=== PATIENT | female | born 1995 | race Caucasian/White ===

== ENCOUNTER 2016-04-27 17:25 | Emergency (ER) | payer MEDICAID, OTHER ==
[2016-04-27] MEDS ORDERED: PANTOPRAZOLE 40MG INJ (PROTONIX) (C9113) As Ordered ONE (19:19)
[2016-04-27] MEDS ORDERED: ONDANSETRON 4MG/2ML VIAL (J2405) As Ordered ONE (19:19)
[2016-04-27 19:36] LABS: BASO % 0.3 % (0.0-1.0); EOS % 0.6 % (0.0-3.0); LARGE UNSTAINED CELL # 0.1 K/mm3 (0.0-0.4); LARGE UNSTAINED CELL % 1.8 % (0.0-4.0); LYMPH # 1.5 K/mm3 (1.5-6.5); LYMPH % 26.3 % (24.0-44.0); MEAN CORPUSCULAR HEMOGLOBIN 31.2 pg (27.0-33.0); MEAN CORPUSCULAR HGB CONC 34.1 g/dl (32.0-36.5); MEAN CORPUSCULAR VOLUME 91.4 fl (80.0-96.0); MONO # 0.3 K/mm3 (0.0-0.8); MONO % 4.8 % (0.0-5.0); NEUTROPHILS # 3.8 K/mm3 (1.8-7.7); NEUTROPHILS % 66.2 % (36.0-66.0); PLATELET COUNT, AUTOMATED 231 k/mm3 (150-450); RED CELL DISTRIBUTION WIDTH 12.7 % (11.5-14.5); WHITE BLOOD COUNT 5.8 K/mm3 (4.0-10.0)
[2016-04-27 19:46] LABS: ALBUMIN 4.1 GM/DL (3.2-5.2); ALBUMIN/GLOBULIN RATIO 1.28 (1.00-1.93); ALKALINE PHOSPHATASE 33 U/L (45-117); ALT/SGPT 26 U/L (12-78); AMYLASE 42 U/L (25-115); ANION GAP 6 MEQ/L (8-16); AST/SGOT 17 U/L (15-37); BILIRUBIN,DIRECT < 0.1 MG/DL (0.0-0.2); BILIRUBIN,TOTAL 0.4 MG/DL (0.2-1.0); BLOOD UREA NITROGEN 7 MG/DL (7-18); CALCIUM LEVEL 8.9 MG/DL (8.5-10.1); CARBON DIOXIDE LEVEL 30 MEQ/L (21-32); CHLORIDE LEVEL 105 MEQ/L (98-107); CREATININE FOR GFR 0.92 MG/DL (0.55-1.02); GLOMERULAR FILTRATION RATE > 60.0 (>60); GLUCOSE, FASTING 104 MG/DL (70-105); POTASSIUM SERUM 3.9 MEQ/L (3.5-5.1); SODIUM LEVEL 141 MEQ/L (136-145); TOTAL PROTEIN 7.3 GM/DL (6.4-8.2)
[2016-04-27 20:13] LABS: CONTROL LINE UCG INT CTR LINE PRESENT
--- NOTE | 2016-04-27 22:10 | EDDOCDS ---
Nurse's Notes [facility] Name: Concha Hogue Age: 20 yrs Sex: Female : 1995 Arrival Date: 04/27/2016 Time: 17:25 Bed I7 / 29 Private MD: Kathy Muller Diagnosis: Upper abdominal pain, unspecified;Vomiting Presentation: 04/27 17:30 Presenting complaint: Patient states: throwing up for past 2 days. Patient also reports hs1 sharp pain on left upper quadrant. Patient states just continuing to get weaker. Adult Sepsis Screening: The patient does not have new or worsening altered mentation. Patient's respiratory rate is less than 22. Systolic blood pressure is greater than 100. Patient has a qSOFA score of 0- Negative Sepsis Screen. Suicide/Homicide risk assessment- the patient denies having any suicidal and/or homicidal ideations and does not present with any other emotional, behavioral or mental health complaints. Status: Patient is not a manager of allied health services or dependent. Transition of care: patient was not received from another setting of care. 17:30 Acuity: ELIAZAR Level 3 hs1 17:30 Method Of Arrival: Walkin/Carried/Asstd hs1 Triage Assessment: 17:31 General: Appears uncomfortable, Behavior is appropriate for age, cooperative. Pain: hs1 Location: right upper quadrant and left upper quadrant Pain currently is 8 out of 10 on a pain scale. Pain: Quality of pain is described as sharp. HIV screening NA for this visit Offered previously. GI: Reports nausea. GI: Reports indigestion. : Denies burning with urination. Derm: Skin is pink, warm & dry. normal. Historical: - Allergies: No known drug Allergies; - Home Meds: 1. none - PMHx: none; - PSHx: Tonsillectomy; Adenoidectomy; - Social history: Smoking status: Patient states was never smoker of tobacco. No barriers to communication noted, The patient speaks fluent Lebanese, Speaks appropriately for age. - Family history: Not pertinent. - : The pt / caregiver states he / she is not on anticoagulants. Home medication list is obtained from the patient. - Exposure Risk Screening:: None identified. Screenin:25 Screening information is obtained from the patient. Fall risk: No risks identified. jmb Assistance ADL's: requires no assistance with activities of daily living. Abuse/DV Screen: The patient / caregiver reports he/she is: not in a situation that causes fear, pain or injury. Nutritional screening: No deficits noted. home support is adequate. 22:09 Advance Directives: There is no active DNR order. mb9 Assessment: 19:25 General: Appears in no apparent distress, Behavior is appropriate for age, cooperative. jmb Neurological: Level of Consciousness is awake, alert, obeys commands, Oriented to person, place, time, Speech is normal, Facial symmetry appears normal, Facial symmetry: tongue is midline. Cardiovascular: Capillary refill < 3 seconds Heart tones S1 S2 present Pulses are all present. Respiratory: Airway is patent Respiratory effort is even, unlabored, Respiratory pattern is regular, symmetrical, Breath sounds are clear bilaterally. GI: Abdomen is non- distended Bowel sounds present X 4 quads. Abd is soft X 4 quads. Derm: Skin is pink, warm & dry. Musculoskeletal: Range of motion intact in all extremities. 20:23 General: Appears in no apparent distress, comfortable, Behavior is appropriate for age, jmb cooperative, Patient laying on stretcher with friend at bedside. NO voiced complaints at this time. . Neurological: Level of Consciousness is awake, alert, obeys commands, Oriented to person, place, time. Respiratory: Airway is patent Respiratory effort is even, unlabored, Respiratory pattern is regular, symmetrical. 21:04 General: Appears in no apparent distress, comfortable, Behavior is appropriate for age, jmb cooperative. Neurological: Level of Consciousness is awake, alert, obeys commands, Oriented to person, place, time. Respiratory: Airway is patent Respiratory effort is even, unlabored, Respiratory pattern is regular, symmetrical. 21:57 General: Appears in no apparent distress, comfortable, Behavior is appropriate for age, mb9 cooperative. Respiratory: Airway is patent Respiratory effort is even, unlabored. GI: Denies nausea. 22:09 General: Appears. mb9 Vital Signs: 17:28 BP 165 / 87; Pulse 89; Resp 18 S; Temp 97.3(O); Pulse Ox 100% on R/A; Weight 92.53 kg gr2 (R); Height 5 ft. 11 in. (180.34 cm) (R); Pain 4/10; 22:09 BP 132 / 91; Pulse 77; Resp 17; Temp 97.5(TE); Pulse Ox 99% ; mb9 17:28 Body Mass Index 28.45 (92.53 kg, 180.34 cm) gr2 Vitals: 17:28 Log In Time: April 27, 2016 at 17:28. gr2 ED Course: 17:27 Patient visited by Keren Aaron. gr2 17:27 Kathy Muller is Private Physician. gr2 17:27 Patient moved to Waiting gr2 17:28 Patient visited by Keren Aaron. gr2 17:28 Patient moved to Pre RCE gr2 17:30 Triage Initiated hs1 18:48 Patient moved to Triage 2 ck1 19:03 Fidencio Faulkner RPA-C is PHCP. ck7 19:03 Ezra San MD is Attending Physician. ck7 19:03 Patient visited by Fidencio Faulkner RPA-C. ck7 19:07 Blanca Martinez, BK is Primary Nurse. ttb 19:07 Maya Craven,BK is Primary Nurse. ttb 19:07 Patient moved to I ttb 19:25 The patient / caregiver is instructed regarding the plan of care and ED course. jmb 19:25 Amylase Sent. jmb 19:25 Basic Metabolic Profile Sent. jmb 19:25 CBC with Diff Sent. jmb 19:25 Lipase Sent. jmb 19:25 Liver Profile Sent. jmb 19:25 Urinalysis Sent. jmb 19:25 Urine Culture Sent. jmb 19:25 Inserted saline lock: 18 gauge in right antecubital area and blood collected. The [facility] patient tolerated the procedure well. Labs drawn. (by ED staff). Sent per order to lab. Urine collected. Clean catch specimen. 19:27 Patient visited by Lobo Castillo,BK. jmb 19:47 [facility] Payment Agreement was scanned into [employer] and attached to record. gjb 20:00 Patient visited by Fidencio Faulkner RPA-C. ck7 20:00 UCG- In Lab Sent. kc3 20:23 Patient visited by Lobo Castillo,BK. jmb 21:05 Patient visited by Lobo Castillo,BK. jmb 21:29 Primary Nurse role handed off by Blanca Martinez, RN pc 21:35 Patient visited by Fidencio Faulkner RPA-C. ck7 21:55 Kathy Muller is Referral Physician. ck7 22:09 Discontinued IV lock intact, bleeding controlled, pressure dressing applied, No mb9 redness/swelling at site. No procedures done that require assistance. Administered Medications: 19:31 Drug: pantoprazole 40 mg [pantoprazole 40 mg intravenous solution] Route: IV; Rate: kc3 bolus; Site: right antecubital; 19:31 Drug: Ondansetron 4 mg [ondansetron HCl 2 mg/mL intravenous solution (2 mL)] Route: kc3 IVP; Site: right antecubital; 19:32 Drug: NS 0.9% 1000 ml [sodium chloride 0.9 % intravenous solution] Route: IV; Rate: kc3 bolus; Site: right antecubital; Intake: 21:58 PO: 360.00ml; Total: 360.00ml. mb9 Order Results: Lab Order: Amylase; SPEC'M 04/27/16 19:21 Test: AMYLASE; Value: 42; Range: 25-115; Units: U/L; Status: F Lab Order: Basic Metabolic Profile; SPEC'M 04/27/16 19:21 Test: GLUCOSE, FASTING; Value: 104; Range: 70-105; Units: MG/DL; Status: F Test: BLOOD UREA NITROGEN; Value: 7; Range: 7-18; Units: MG/DL; Status: F Test: CREATININE FOR GFR; Value: 0.92; Range: 0.55-1.02; Units: MG/DL; Status: F Test: GLOMERULAR FILTRATION RATE; Value: > 60.0; Range: >60; Status: F Test: SODIUM LEVEL; Value: 141; Range: 136-145; Units: MEQ/L; Status: F Test: POTASSIUM SERUM; Value: 3.9; Range: 3.5-5.1; Units: MEQ/L; Status: F Test: CHLORIDE LEVEL; Value: 105; Range: 98-107; Units: MEQ/L; Status: F Test: CARBON DIOXIDE LEVEL; Value: 30; Range: 21-32; Units: MEQ/L; Status: F Test: ANION GAP; Value: 6; Range: 8-16; Abnormal: Below low normal; Units: MEQ/L; Status: F Test: CALCIUM LEVEL; Value: 8.9; Range: 8.5-10.1; Units: MG/DL; Status: F Test Note: ; Units are mL/min/1.73 m2 Chronic Kidney Disease Staging per NKF: Stage I & II GFR >=60 Normal to Mildly Decreased Stage III GFR 30-59 Moderately Decreased Stage IV GFR 15-29 Severely Decreased Stage V GFR <15 Very Little GFR Left ESRD GFR <15 on CUSTOMER EXPERT Lab Order: CBC with Diff; SPEC'M 04/27/16 19:21 Test: WHITE BLOOD COUNT; Value: 5.8; Range: 4.0-10.0; Units: K/mm3; Status: F Test: RED BLOOD COUNT; Value: 4.15; Range: 4.00-5.40; Units: M/mm3; Status: F Test: HEMOGLOBIN; Value: 13.0; Range: 12.0-16.0; Units: g/dl; Status: F Test: HEMATOCRIT; Value: 38.0; Range: 36.0-47.0; Units: %; Status: F Test: MEAN CORPUSCULAR VOLUME; Value: 91.4; Range: 80.0-96.0; Units: fl; Status: F Test: MEAN CORPUSCULAR HEMOGLOBIN; Value: 31.2; Range: 27.0-33.0; Units: pg; Status: F Test: MEAN CORPUSCULAR HGB CONC; Value: 34.1; Range: 32.0-36.5; Units: g/dl; Status: F Test: RED CELL DISTRIBUTION WIDTH; Value: 12.7; Range: 11.5-14.5; Units: %; Status: F Test: PLATELET COUNT, AUTOMATED; Value: 231; Range: 150-450; Units: k/mm3; Status: F Test: NEUTROPHILS %; Value: 66.2; Range: 36.0-66.0; Abnormal: Above high normal; Units: %; Status: F Test: LYMPH %; Value: 26.3; Range: 24.0-44.0; Units: %; Status: F Test: MONO %; Value: 4.8; Range: 0.0-5.0; Units: %; Status: F Test: EOS %; Value: 0.6; Range: 0.0-3.0; Units: %; Status: F Test: BASO %; Value: 0.3; Range: 0.0-1.0; Units: %; Status: F Test: LARGE UNSTAINED CELL %; Value: 1.8; Range: 0.0-4.0; Units: %; Status: F Test: NEUTROPHILS #; Value: 3.8; Range: 1.8-7.7; Units: K/mm3; Status: F Test: LYMPH #; Value: 1.5; Range: 1.5-6.5; Units: K/mm3; Status: F Test: MONO #; Value: 0.3; Range: 0.0-0.8; Units: K/mm3; Status: F Test: EOS #; Value: 0.0; Range: 0.0-0.50; Units: K/mm3; Status: F Test: BASO #; Value: 0.0; Range: 0.0-0.2; Units: K/mm3; Status: F Test: LARGE UNSTAINED CELL #; Value: 0.1; Range: 0.0-0.4; Units: K/mm3; Status: F Lab Order: Lipase; SPEC' 04/27/16 19:21 Test: LIPASE; Value: 138; Range: 73-393; Units: U/L; Status: F Lab Order: Liver Profile; SPEC' 04/27/16 19:21 Test: AST/SGOT; Value: 17; Range: 15-37; Units: U/L; Status: F Test: ALT/SGPT; Value: 26; Range: 12-78; Units: U/L; Status: F Test: ALKALINE PHOSPHATASE; Value: 33; Range: 45-117; Abnormal: Below low normal; Units: U/L; Status: F Test: BILIRUBIN,TOTAL; Value: 0.4; Range: 0.2-1.0; Units: MG/DL; Status: F Test: BILIRUBIN,DIRECT; Value: < 0.1; Range: 0.0-0.2; Units: MG/DL; Status: F Test: TOTAL PROTEIN; Value: 7.3; Range: 6.4-8.2; Units: GM/DL; Status: F Test: ALBUMIN; Value: 4.1; Range: 3.2-5.2; Units: GM/DL; Status: F Test: ALBUMIN/GLOBULIN RATIO; Value: 1.28; Range: 1.00-1.93; Status: F Lab Order: Urinalysis; SPEC'M 04/27/16 19:21 Test: APPEARANCE, URINE; Value: CLEAR; Range: CLEAR; Status: F Test: COLOR, URINE; Value: YELLOW; Range: YELLOW; Status: F Test: PH,URINE; Value: 9.0; Range: 5.0-9.0; Units: UNITS; Status: F Test: SPECIFIC GRAVITY URINE AUTO; Value: 1.010; Range: 1.002-1.035; Status: F Test: PROTEIN, URINE AUTO; Value: NEGATIVE; Range: NEGATIVE; Units: mg/dL; Status: F Test: GLUCOSE, URINE (UA) AUTO; Value: NEGATIVE; Range: NEGATIVE; Units: mg/dL; Status: F Test: KETONE, URINE AUTO; Value: NEGATIVE; Range: NEGATIVE; Units: mg/dL; Status: F Test: UROBILINOGEN, URINE AUTO; Value: 0.2; Range: 0.0-2.0; Units: mg/dL; Status: F Test: BILIRUBIN, URINE AUTO; Value: NEGATIVE; Range: NEGATIVE; Status: F Test: NITRITE, URINE AUTO; Value: NEGATIVE; Range: NEGATIVE; Status: F Test: LEUKOCYTE ESTERASE, URINE AUTO; Value: NEGATIVE; Range: NEGATIVE; Status: F Test: BLOOD, URINE BLOOD; Value: NEGATIVE; Range: NEGATIVE; Status: F Test: WBC, URINE AUTO; Value: 1; Range: 0-3; Units: /HPF; Status: F Test: RBC, URINE AUTO; Value: 2; Range: 0-3; Units: /HPF; Status: F Test: BACTERIA, URINE AUTO; Value: NEGATIVE; Range: NEGATIVE; Status: F Test: SQUAMOUS EPITHELIAL CELL UR AU; Value: 0; Range: 0-6; Units: /HPF; Status: F Test: HYALINE CAST, URINE AUTO; Value: 0; Range: 0-1; Units: /LPF; Status: F Test: AMORPHOUS SEDIMENT; Value: SMALL; Range: NEGATIVE; Abnormal: Above high normal; Status: F Lab Order: UCG- In Lab; SPEC'M 04/27/16 19:30 Test: URINE PREG TEST; Value: NEGATIVE; Range: NEGATIVE; Status: F Outcome: 21:56 Discharge ordered by Provider. ck7 22:09 Discharge Assessment: patient administered narcotics - no. The following High Risk mb9 Discharge criteria are identified: None. Discharged to home ambulatory. Condition: good Condition: stable Condition: improved. Discharge instructions given to patient, Instructed on discharge instructions, follow up and referral plans. medication usage, Demonstrated understanding of instructions, medications, Pt was receptive of discharge instructions/ teaching. Prescriptions given X 2. No special radiology studies were completed. Property :Personal belongings accompany Pt. 22:10 Patient left the ED. mb9 Signatures: Sunday Gunn MD MD pc Kim-Ashcraft, Connie,RN RN ck1 Jessica Menchaca RN RN hs1 Fidencio Faulkner, [facility] RPA-Cck7 Kassy Springer, RN RN ttb Keren Aaron gr2 Lobo Castillo RN RN Kishore GaribayRN RN mb9 Germania Elias RN RN kc3 Yani Rowe ROSS
--- NOTE | 2016-04-27 22:10 | EDDOCDS ---
Physician Documentation [facility] Name: Concha Hogue Age: 20 yrs Sex: Female : 1995 Arrival Date: 04/27/2016 Time: 17:25 Bed I7 / 29 Private MD: Kathy Muller Disposition: 04/27/16 21:56 Discharged to Home/Self Care. Impression: Upper abdominal pain, unspecified, Vomiting. - Condition is Stable. - Discharge Instructions: Abdominal Pain, Adult, Nausea and Vomiting. - Prescriptions for Prilosec 20 mg Oral Capsule - take 1 capsule by ORAL route once daily; 10 capsule. ZOFRAN ODT 4 mg - dissolve 1 tablet by ORAL route 4 times per day As needed do not chew, do not swallow whole; 10 tablet. - Medication Reconciliation, Local Pharmacy Hours form. - Follow up: Kathy Muller; When: 1 - 2 days; Reason: Recheck today's complaints, Continuance of care. - Problem is new. - Symptoms have improved. - Notes: USE MEDICATIONS INSTRUCTED, FOLLOW UP WITH YOUR DOCTOR IN 1-2 DAYS, RETURN TO THE ER IF THE SYMPTOMS WORSEN OR BECOME CONCERNING Historical: - Allergies: No known drug Allergies; - Home Meds: 1. none - PMHx: none; - PSHx: Tonsillectomy; Adenoidectomy; - Social history: Smoking status: Patient states was never smoker of tobacco. No barriers to communication noted, The patient speaks fluent Italian, Speaks appropriately for age. - Family history: Not pertinent. - : The pt / caregiver states he / she is not on anticoagulants. Home medication list is obtained from the patient. - Exposure Risk Screening:: None identified. Vital Signs: 04/27 17:28 BP 165 / 87; Pulse 89; Resp 18 S; Temp 97.3(O); Pulse Ox 100% on R/A; Weight 92.53 kg / gr2 203.99 lbs (R); Height 5 ft. 11 in. (180.34 cm) (R); Pain 4/10; 22:09 BP 132 / 91; Pulse 77; Resp 17; Temp 97.5(TE); Pulse Ox 99% ; mb9 17:28 Body Mass Index 28.45 (92.53 kg, 180.34 cm) gr2 MDM: 19:12 Undress patient appropriately for examination ordered. ck7 19:12 IV Saline Lock ordered. ck7 19:12 NS 0.9% 1000 ml IV at bolus once ordered. ck7 19:12 pantoprazole 40 mg IV at bolus once ordered. ck7 19:12 Ondansetron 4 mg IVP once ordered. ck7 19:14 Amylase Ordered. EDMS 19:14 Basic Metabolic Profile Ordered. EDMS 19:14 CBC with Diff Ordered. EDMS 19:14 Lipase Ordered. EDMS 19:14 Liver Profile Ordered. EDMS 19:14 Urinalysis Ordered. EDMS 19:14 Urine Culture Ordered. EDMS 19:15 NOTHING BY MOUTH+DIET ordered. EDMS 19:40 Financial registration complete. [facility] 19:47 [facility] Payment Agreement was scanned into [employer] and attached to record. gjb 19:57 Basic Metabolic Profile Reviewed. ck7 19:57 CBC with Diff Reviewed. ck7 19:57 Liver Profile Reviewed. ck7 19:57 Urinalysis Reviewed. ck7 19:57 Amylase Reviewed. ck7 19:57 Lipase Reviewed. ck7 19:58 UCG- In Lab Ordered. EDMS 20:19 UCG- In Lab Reviewed. ck7 21:27 Fluid Challenge ordered. ck7 Administered Medications: 19:31 Drug: pantoprazole 40 mg [pantoprazole 40 mg intravenous solution] Route: IV; Rate: kc3 bolus; Site: right antecubital; 19:31 Drug: Ondansetron 4 mg [ondansetron HCl 2 mg/mL intravenous solution (2 mL)] Route: kc3 IVP; Site: right antecubital; 19:32 Drug: NS 0.9% 1000 ml [sodium chloride 0.9 % intravenous solution] Route: IV; Rate: kc3 bolus; Site: right antecubital; Signatures: Dispatcher [employer] EDID Jessica Menchaca RN RN hs1 Fidencio Faulkner, SHANIA-C RPA-Cck7 Lobo Castillo RN RN jmb Belles, Michael, RN RN mb9 Yani Rowe Germania Barrow RN kc3 The chart was reviewed and I authenticate all verbal orders and agree with the evaluation and treatment provided.Attachments: 19:47 [facility] Payment Agreement [facility] MTDD
--- NOTE | 2016-04-29 23:10 | EDDOCDS ---
Physician Documentation [facility] Name: Concha Hogue Age: 20 yrs Sex: Female : 1995 Arrival Date: 04/27/2016 Time: 17:25 Bed I7 / 29 Private MD: Kathy Muller Disposition: 04/27/16 21:56 Discharged to Home/Self Care. Impression: Upper abdominal pain, unspecified, Vomiting. - Condition is Stable. - Discharge Instructions: Abdominal Pain, Adult, Nausea and Vomiting. - Prescriptions for Prilosec 20 mg Oral Capsule - take 1 capsule by ORAL route once daily; 10 capsule. ZOFRAN ODT 4 mg - dissolve 1 tablet by ORAL route 4 times per day As needed do not chew, do not swallow whole; 10 tablet. - Medication Reconciliation, Local Pharmacy Hours form. - Follow up: Kathy Muller; When: 1 - 2 days; Reason: Recheck today's complaints, Continuance of care. - Problem is new. - Symptoms have improved. - Notes: USE MEDICATIONS INSTRUCTED, FOLLOW UP WITH YOUR DOCTOR IN 1-2 DAYS, RETURN TO THE ER IF THE SYMPTOMS WORSEN OR BECOME CONCERNING Historical: - Allergies: No known drug Allergies; - Home Meds: 1. none - PMHx: none; - PSHx: Tonsillectomy; Adenoidectomy; - Social history: Smoking status: Patient states was never smoker of tobacco. No barriers to communication noted, The patient speaks fluent Zimbabwean, Speaks appropriately for age. - Family history: Not pertinent. - : The pt / caregiver states he / she is not on anticoagulants. Home medication list is obtained from the patient. - Exposure Risk Screening:: None identified. Vital Signs: 04/27 17:28 BP 165 / 87; Pulse 89; Resp 18 S; Temp 97.3(O); Pulse Ox 100% on R/A; Weight 92.53 kg / gr2 203.99 lbs (R); Height 5 ft. 11 in. (180.34 cm) (R); Pain 4/10; 22:09 BP 132 / 91; Pulse 77; Resp 17; Temp 97.5(TE); Pulse Ox 99% ; mb9 17:28 Body Mass Index 28.45 (92.53 kg, 180.34 cm) gr2 MDM: 19:12 Undress patient appropriately for examination ordered. ck7 19:12 IV Saline Lock ordered. ck7 19:12 NS 0.9% 1000 ml IV at bolus once ordered. ck7 19:12 pantoprazole 40 mg IV at bolus once ordered. ck7 19:12 Ondansetron 4 mg IVP once ordered. ck7 19:14 Amylase Ordered. EDMS 19:14 Basic Metabolic Profile Ordered. EDMS 19:14 CBC with Diff Ordered. EDMS 19:14 Lipase Ordered. EDMS 19:14 Liver Profile Ordered. EDMS 19:14 Urinalysis Ordered. EDMS 19:14 Urine Culture Ordered. EDMS 19:15 NOTHING BY MOUTH+DIET ordered. EDMS 19:40 Financial registration complete. [facility] 19:47 [facility] Payment Agreement was scanned into [employer] and attached to record. gjb 19:57 Basic Metabolic Profile Reviewed. ck7 19:57 CBC with Diff Reviewed. ck7 19:57 Liver Profile Reviewed. ck7 19:57 Urinalysis Reviewed. ck7 19:57 Amylase Reviewed. ck7 19:57 Lipase Reviewed. ck7 19:58 UCG- In Lab Ordered. EDMS 20:19 UCG- In Lab Reviewed. ck7 21:27 Fluid Challenge ordered. ck7 04/28 11:46 T-Sheet-- Draft Copy was scanned into [employer] and attached to record. gb Administered Medications: 04/27 19:31 Drug: pantoprazole 40 mg [pantoprazole 40 mg intravenous solution] Route: IV; Rate: kc3 bolus; Site: right antecubital; 19:31 Drug: Ondansetron 4 mg [ondansetron HCl 2 mg/mL intravenous solution (2 mL)] Route: kc3 IVP; Site: right antecubital; 19:32 Drug: NS 0.9% 1000 ml [sodium chloride 0.9 % intravenous solution] Route: IV; Rate: kc3 bolus; Site: right antecubital; Signatures: Dispatcher [employer] EDWI Joanne Orellana, Alvarez Reg gb Jessica Menchaca, RN RN hs1 Fidencio Faulkner, SHANIA-C RPA-Cck7 Lobo Castillo RN RN Kishore GaribayRN RN mb9 Yani Rowe b Germania Elias RN kc3 The chart was reviewed and I authenticate all verbal orders and agree with the evaluation and treatment provided.Attachments: 19:47 [facility] Payment Agreement gjb 04/28 11:46 T-Sheet-- Draft Copy gb Chart Complete MTDD
--- NOTE | 2016-04-29 23:10 | EDDOCDS ---
Nurse's Notes [facility] Name: Concha Hogue Age: 20 yrs Sex: Female : 1995 Arrival Date: 04/27/2016 Time: 17:25 Bed I7 / 29 Private MD: Kathy Muller Diagnosis: Upper abdominal pain, unspecified;Vomiting Presentation: 04/27 17:30 Presenting complaint: Patient states: throwing up for past 2 days. Patient also reports hs1 sharp pain on left upper quadrant. Patient states just continuing to get weaker. Adult Sepsis Screening: The patient does not have new or worsening altered mentation. Patient's respiratory rate is less than 22. Systolic blood pressure is greater than 100. Patient has a qSOFA score of 0- Negative Sepsis Screen. Suicide/Homicide risk assessment- the patient denies having any suicidal and/or homicidal ideations and does not present with any other emotional, behavioral or mental health complaints. Status: Patient is not a caregiver services home or dependent. Transition of care: patient was not received from another setting of care. 17:30 Acuity: ELIAZAR Level 3 hs1 17:30 Method Of Arrival: Walkin/Carried/Asstd hs1 Triage Assessment: 17:31 General: Appears uncomfortable, Behavior is appropriate for age, cooperative. Pain: hs1 Location: right upper quadrant and left upper quadrant Pain currently is 8 out of 10 on a pain scale. Pain: Quality of pain is described as sharp. HIV screening NA for this visit Offered previously. GI: Reports nausea. GI: Reports indigestion. : Denies burning with urination. Derm: Skin is pink, warm & dry. normal. Historical: - Allergies: No known drug Allergies; - Home Meds: 1. none - PMHx: none; - PSHx: Tonsillectomy; Adenoidectomy; - Social history: Smoking status: Patient states was never smoker of tobacco. No barriers to communication noted, The patient speaks fluent Kittitian, Speaks appropriately for age. - Family history: Not pertinent. - : The pt / caregiver states he / she is not on anticoagulants. Home medication list is obtained from the patient. - Exposure Risk Screening:: None identified. Screenin:25 Screening information is obtained from the patient. Fall risk: No risks identified. jmb Assistance ADL's: requires no assistance with activities of daily living. Abuse/DV Screen: The patient / caregiver reports he/she is: not in a situation that causes fear, pain or injury. Nutritional screening: No deficits noted. home support is adequate. 22:09 Advance Directives: There is no active DNR order. mb9 Assessment: 19:25 General: Appears in no apparent distress, Behavior is appropriate for age, cooperative. jmb Neurological: Level of Consciousness is awake, alert, obeys commands, Oriented to person, place, time, Speech is normal, Facial symmetry appears normal, Facial symmetry: tongue is midline. Cardiovascular: Capillary refill < 3 seconds Heart tones S1 S2 present Pulses are all present. Respiratory: Airway is patent Respiratory effort is even, unlabored, Respiratory pattern is regular, symmetrical, Breath sounds are clear bilaterally. GI: Abdomen is non- distended Bowel sounds present X 4 quads. Abd is soft X 4 quads. Derm: Skin is pink, warm & dry. Musculoskeletal: Range of motion intact in all extremities. 20:23 General: Appears in no apparent distress, comfortable, Behavior is appropriate for age, jmb cooperative, Patient laying on stretcher with friend at bedside. NO voiced complaints at this time. . Neurological: Level of Consciousness is awake, alert, obeys commands, Oriented to person, place, time. Respiratory: Airway is patent Respiratory effort is even, unlabored, Respiratory pattern is regular, symmetrical. 21:04 General: Appears in no apparent distress, comfortable, Behavior is appropriate for age, jmb cooperative. Neurological: Level of Consciousness is awake, alert, obeys commands, Oriented to person, place, time. Respiratory: Airway is patent Respiratory effort is even, unlabored, Respiratory pattern is regular, symmetrical. 21:57 General: Appears in no apparent distress, comfortable, Behavior is appropriate for age, mb9 cooperative. Respiratory: Airway is patent Respiratory effort is even, unlabored. GI: Denies nausea. 22:09 General: Appears. mb9 Vital Signs: 17:28 BP 165 / 87; Pulse 89; Resp 18 S; Temp 97.3(O); Pulse Ox 100% on R/A; Weight 92.53 kg gr2 (R); Height 5 ft. 11 in. (180.34 cm) (R); Pain 4/10; 22:09 BP 132 / 91; Pulse 77; Resp 17; Temp 97.5(TE); Pulse Ox 99% ; mb9 17:28 Body Mass Index 28.45 (92.53 kg, 180.34 cm) gr2 Vitals: 17:28 Log In Time: April 27, 2016 at 17:28. gr2 ED Course: 17:27 Patient visited by Keren Aaron. gr2 17:27 Kathy Muller is Private Physician. gr2 17:27 Patient moved to Waiting gr2 17:28 Patient visited by Keren Aaron. gr2 17:28 Patient moved to Pre RCE gr2 17:30 Triage Initiated hs1 18:48 Patient moved to Triage 2 ck1 19:03 Fidencio Faulkner RPA-C is PHCP. ck7 19:03 Ezra San MD is Attending Physician. ck7 19:03 Patient visited by Fidencio Faulkner RPA-C. ck7 19:07 Blanca Martinez, BK is Primary Nurse. ttb 19:07 Maya Craven,BK is Primary Nurse. ttb 19:07 Patient moved to I ttb 19:25 The patient / caregiver is instructed regarding the plan of care and ED course. jmb 19:25 Amylase Sent. jmb 19:25 Basic Metabolic Profile Sent. jmb 19:25 CBC with Diff Sent. jmb 19:25 Lipase Sent. jmb 19:25 Liver Profile Sent. jmb 19:25 Urinalysis Sent. jmb 19:25 Urine Culture Sent. jmb 19:25 Inserted saline lock: 18 gauge in right antecubital area and blood collected. The [facility] patient tolerated the procedure well. Labs drawn. (by ED staff). Sent per order to lab. Urine collected. Clean catch specimen. 19:27 Patient visited by Lobo Castillo,BK. jmb 19:47 [facility] Payment Agreement was scanned into [employer] and attached to record. gjb 20:00 Patient visited by Fidencio Faulkner RPA-C. ck7 20:00 UCG- In Lab Sent. kc3 20:23 Patient visited by Lobo Castillo,BK. jmb 21:05 Patient visited by Lobo Castillo,BK. jmb 21:29 Primary Nurse role handed off by Blanca Martinez, RN pc 21:35 Patient visited by Fidencio Faulkner RPA-C. ck7 21:55 Kathy Muller is Referral Physician. ck7 22:09 Discontinued IV lock intact, bleeding controlled, pressure dressing applied, No mb9 redness/swelling at site. No procedures done that require assistance. 04/28 11:46 T-Sheet-- Draft Copy was scanned into [employer] and attached to record. gb Administered Medications: 04/27 19:31 Drug: pantoprazole 40 mg [pantoprazole 40 mg intravenous solution] Route: IV; Rate: kc3 bolus; Site: right antecubital; 19:31 Drug: Ondansetron 4 mg [ondansetron HCl 2 mg/mL intravenous solution (2 mL)] Route: kc3 IVP; Site: right antecubital; 19:32 Drug: NS 0.9% 1000 ml [sodium chloride 0.9 % intravenous solution] Route: IV; Rate: kc3 bolus; Site: right antecubital; Intake: 21:58 PO: 360.00ml; Total: 360.00ml. mb9 Order Results: Lab Order: Amylase; SPEC'M 04/27/16 19:21 Test: AMYLASE; Value: 42; Range: 25-115; Units: U/L; Status: F Lab Order: Basic Metabolic Profile; SPEC'M 04/27/16 19:21 Test: GLUCOSE, FASTING; Value: 104; Range: 70-105; Units: MG/DL; Status: F Test: BLOOD UREA NITROGEN; Value: 7; Range: 7-18; Units: MG/DL; Status: F Test: CREATININE FOR GFR; Value: 0.92; Range: 0.55-1.02; Units: MG/DL; Status: F Test: GLOMERULAR FILTRATION RATE; Value: > 60.0; Range: >60; Status: F Test: SODIUM LEVEL; Value: 141; Range: 136-145; Units: MEQ/L; Status: F Test: POTASSIUM SERUM; Value: 3.9; Range: 3.5-5.1; Units: MEQ/L; Status: F Test: CHLORIDE LEVEL; Value: 105; Range: 98-107; Units: MEQ/L; Status: F Test: CARBON DIOXIDE LEVEL; Value: 30; Range: 21-32; Units: MEQ/L; Status: F Test: ANION GAP; Value: 6; Range: 8-16; Abnormal: Below low normal; Units: MEQ/L; Status: F Test: CALCIUM LEVEL; Value: 8.9; Range: 8.5-10.1; Units: MG/DL; Status: F Test Note: ; Units are mL/min/1.73 m2 Chronic Kidney Disease Staging per NKF: Stage I & II GFR >=60 Normal to Mildly Decreased Stage III GFR 30-59 Moderately Decreased Stage IV GFR 15-29 Severely Decreased Stage V GFR <15 Very Little GFR Left ESRD GFR <15 on [employer] Lab Order: CBC with Diff; SPEC'M 04/27/16 19:21 Test: WHITE BLOOD COUNT; Value: 5.8; Range: 4.0-10.0; Units: K/mm3; Status: F Test: RED BLOOD COUNT; Value: 4.15; Range: 4.00-5.40; Units: M/mm3; Status: F Test: HEMOGLOBIN; Value: 13.0; Range: 12.0-16.0; Units: g/dl; Status: F Test: HEMATOCRIT; Value: 38.0; Range: 36.0-47.0; Units: %; Status: F Test: MEAN CORPUSCULAR VOLUME; Value: 91.4; Range: 80.0-96.0; Units: fl; Status: F Test: MEAN CORPUSCULAR HEMOGLOBIN; Value: 31.2; Range: 27.0-33.0; Units: pg; Status: F Test: MEAN CORPUSCULAR HGB CONC; Value: 34.1; Range: 32.0-36.5; Units: g/dl; Status: F Test: RED CELL DISTRIBUTION WIDTH; Value: 12.7; Range: 11.5-14.5; Units: %; Status: F Test: PLATELET COUNT, AUTOMATED; Value: 231; Range: 150-450; Units: k/mm3; Status: F Test: NEUTROPHILS %; Value: 66.2; Range: 36.0-66.0; Abnormal: Above high normal; Units: %; Status: F Test: LYMPH %; Value: 26.3; Range: 24.0-44.0; Units: %; Status: F Test: MONO %; Value: 4.8; Range: 0.0-5.0; Units: %; Status: F Test: EOS %; Value: 0.6; Range: 0.0-3.0; Units: %; Status: F Test: BASO %; Value: 0.3; Range: 0.0-1.0; Units: %; Status: F Test: LARGE UNSTAINED CELL %; Value: 1.8; Range: 0.0-4.0; Units: %; Status: F Test: NEUTROPHILS #; Value: 3.8; Range: 1.8-7.7; Units: K/mm3; Status: F Test: LYMPH #; Value: 1.5; Range: 1.5-6.5; Units: K/mm3; Status: F Test: MONO #; Value: 0.3; Range: 0.0-0.8; Units: K/mm3; Status: F Test: EOS #; Value: 0.0; Range: 0.0-0.50; Units: K/mm3; Status: F Test: BASO #; Value: 0.0; Range: 0.0-0.2; Units: K/mm3; Status: F Test: LARGE UNSTAINED CELL #; Value: 0.1; Range: 0.0-0.4; Units: K/mm3; Status: F Lab Order: Lipase; SPEC' 04/27/16 19:21 Test: LIPASE; Value: 138; Range: 73-393; Units: U/L; Status: F Lab Order: Liver Profile; SPEC' 04/27/16 19:21 Test: AST/SGOT; Value: 17; Range: 15-37; Units: U/L; Status: F Test: ALT/SGPT; Value: 26; Range: 12-78; Units: U/L; Status: F Test: ALKALINE PHOSPHATASE; Value: 33; Range: 45-117; Abnormal: Below low normal; Units: U/L; Status: F Test: BILIRUBIN,TOTAL; Value: 0.4; Range: 0.2-1.0; Units: MG/DL; Status: F Test: BILIRUBIN,DIRECT; Value: < 0.1; Range: 0.0-0.2; Units: MG/DL; Status: F Test: TOTAL PROTEIN; Value: 7.3; Range: 6.4-8.2; Units: GM/DL; Status: F Test: ALBUMIN; Value: 4.1; Range: 3.2-5.2; Units: GM/DL; Status: F Test: ALBUMIN/GLOBULIN RATIO; Value: 1.28; Range: 1.00-1.93; Status: F Lab Order: Urinalysis; SPEC'M 04/27/16 19:21 Test: APPEARANCE, URINE; Value: CLEAR; Range: CLEAR; Status: F Test: COLOR, URINE; Value: YELLOW; Range: YELLOW; Status: F Test: PH,URINE; Value: 9.0; Range: 5.0-9.0; Units: UNITS; Status: F Test: SPECIFIC GRAVITY URINE AUTO; Value: 1.010; Range: 1.002-1.035; Status: F Test: PROTEIN, URINE AUTO; Value: NEGATIVE; Range: NEGATIVE; Units: mg/dL; Status: F Test: GLUCOSE, URINE (UA) AUTO; Value: NEGATIVE; Range: NEGATIVE; Units: mg/dL; Status: F Test: KETONE, URINE AUTO; Value: NEGATIVE; Range: NEGATIVE; Units: mg/dL; Status: F Test: UROBILINOGEN, URINE AUTO; Value: 0.2; Range: 0.0-2.0; Units: mg/dL; Status: F Test: BILIRUBIN, URINE AUTO; Value: NEGATIVE; Range: NEGATIVE; Status: F Test: NITRITE, URINE AUTO; Value: NEGATIVE; Range: NEGATIVE; Status: F Test: LEUKOCYTE ESTERASE, URINE AUTO; Value: NEGATIVE; Range: NEGATIVE; Status: F Test: BLOOD, URINE BLOOD; Value: NEGATIVE; Range: NEGATIVE; Status: F Test: WBC, URINE AUTO; Value: 1; Range: 0-3; Units: /HPF; Status: F Test: RBC, URINE AUTO; Value: 2; Range: 0-3; Units: /HPF; Status: F Test: BACTERIA, URINE AUTO; Value: NEGATIVE; Range: NEGATIVE; Status: F Test: SQUAMOUS EPITHELIAL CELL UR AU; Value: 0; Range: 0-6; Units: /HPF; Status: F Test: HYALINE CAST, URINE AUTO; Value: 0; Range: 0-1; Units: /LPF; Status: F Test: AMORPHOUS SEDIMENT; Value: SMALL; Range: NEGATIVE; Abnormal: Above high normal; Status: F Lab Order: Urine Culture; SPEC'M 04/27/16 19:21 Test: URINE CULTURE; Value: <EXTERNAL COMMENT eCWMed> FULL REPORT IN LAB NOTES (eCW and Medent).; Status: F Test: URINE CULTURE; Value: URINE CULTURE RESULT NO GROWTH; Status: F Lab Order: UCG- In Lab; SPEC'M 04/27/16 19:30 Test: URINE PREG TEST; Value: NEGATIVE; Range: NEGATIVE; Status: F Outcome: 21:56 Discharge ordered by Provider. ck7 22:09 Discharge Assessment: patient administered narcotics - no. The following High Risk mb9 Discharge criteria are identified: None. Discharged to home ambulatory. Condition: good Condition: stable Condition: improved. Discharge instructions given to patient, Instructed on discharge instructions, follow up and referral plans. medication usage, Demonstrated understanding of instructions, medications, Pt was receptive of discharge instructions/ teaching. Prescriptions given X 2. No special radiology studies were completed. Property :Personal belongings accompany Pt. 22:10 Patient left the ED. mb9 Signatures: Sunday Gunn MD MD pc Joanne Orellana, Reg Reg gb Marta Santiago,RN RN ck1 Jessica Menchaca RN RN hs1 Fidencio Faulkner, RPA-C RPA-Cck7 Kassy Springer, RN RN ttb Keren Aaron2 Lobo Castillo RN RN Kishore Garibay RN RN mb9 Germania Elias RN RN kc3 Yani Rowe Chart Complete MTDD
--- NOTE | 2016-04-29 23:11 | EDDOCDS ---
Physician Documentation [facility] Name: Concha Hogue Age: 20 yrs Sex: Female : 1995 Arrival Date: 04/27/2016 Time: 17:25 Bed I7 / 29 Private MD: Kathy Muller Disposition: 04/27/16 21:56 Discharged to Home/Self Care. Impression: Upper abdominal pain, unspecified, Vomiting. - Condition is Stable. - Discharge Instructions: Abdominal Pain, Adult, Nausea and Vomiting. - Prescriptions for Prilosec 20 mg Oral Capsule - take 1 capsule by ORAL route once daily; 10 capsule. ZOFRAN ODT 4 mg - dissolve 1 tablet by ORAL route 4 times per day As needed do not chew, do not swallow whole; 10 tablet. - Medication Reconciliation, Local Pharmacy Hours form. - Follow up: Kathy Muller; When: 1 - 2 days; Reason: Recheck today's complaints, Continuance of care. - Problem is new. - Symptoms have improved. - Notes: USE MEDICATIONS INSTRUCTED, FOLLOW UP WITH YOUR DOCTOR IN 1-2 DAYS, RETURN TO THE ER IF THE SYMPTOMS WORSEN OR BECOME CONCERNING Historical: - Allergies: No known drug Allergies; - Home Meds: 1. none - PMHx: none; - PSHx: Tonsillectomy; Adenoidectomy; - Social history: Smoking status: Patient states was never smoker of tobacco. No barriers to communication noted, The patient speaks fluent [place]ymra[place], Speaks appropriately for age. - Family history: Not pertinent. - : The pt / caregiver states he / she is not on anticoagulants. Home medication list is obtained from the patient. - Exposure Risk Screening:: None identified. Vital Signs: 04/27 17:28 BP 165 / 87; Pulse 89; Resp 18 S; Temp 97.3(O); Pulse Ox 100% on R/A; Weight 92.53 kg / gr2 203.99 lbs (R); Height 5 ft. 11 in. (180.34 cm) (R); Pain 4/10; 22:09 BP 132 / 91; Pulse 77; Resp 17; Temp 97.5(TE); Pulse Ox 99% ; mb9 17:28 Body Mass Index 28.45 (92.53 kg, 180.34 cm) gr2 MDM: 19:12 Undress patient appropriately for examination ordered. ck7 19:12 IV Saline Lock ordered. ck7 19:12 NS 0.9% 1000 ml IV at bolus once ordered. ck7 19:12 pantoprazole 40 mg IV at bolus once ordered. ck7 19:12 Ondansetron 4 mg IVP once ordered. ck7 19:14 Amylase Ordered. EDMS 19:14 Basic Metabolic Profile Ordered. EDMS 19:14 CBC with Diff Ordered. EDMS 19:14 Lipase Ordered. EDMS 19:14 Liver Profile Ordered. EDMS 19:14 Urinalysis Ordered. EDMS 19:14 Urine Culture Ordered. EDMS 19:15 NOTHING BY MOUTH+DIET ordered. EDMS 19:40 Financial registration complete. [facility] 19:47 [facility] Payment Agreement was scanned into [employer] and attached to record. gjb 19:57 Basic Metabolic Profile Reviewed. ck7 19:57 CBC with Diff Reviewed. ck7 19:57 Liver Profile Reviewed. ck7 19:57 Urinalysis Reviewed. ck7 19:57 Amylase Reviewed. ck7 19:57 Lipase Reviewed. ck7 19:58 UCG- In Lab Ordered. EDMS 20:19 UCG- In Lab Reviewed. ck7 21:27 Fluid Challenge ordered. ck7 04/28 11:46 T-Sheet-- Draft Copy was scanned into [employer] and attached to record. gb Administered Medications: 04/27 19:31 Drug: pantoprazole 40 mg [pantoprazole 40 mg intravenous solution] Route: IV; Rate: kc3 bolus; Site: right antecubital; 19:31 Drug: Ondansetron 4 mg [ondansetron HCl 2 mg/mL intravenous solution (2 mL)] Route: kc3 IVP; Site: right antecubital; 19:32 Drug: NS 0.9% 1000 ml [sodium chloride 0.9 % intravenous solution] Route: IV; Rate: kc3 bolus; Site: right antecubital; Signatures: Dispatcher [employer] EDAR Joanne Orellana, Alvarez Reg gb Jessica Menchaca, RN RN hs1 Fidencio Faulkner, SHANIA-C RPA-Cck7 Lobo Castillo RN RN Kishore GaribayRN RN mb9 Yani Rowe b Germania Elias RN kc3 The chart was reviewed and I authenticate all verbal orders and agree with the evaluation and treatment provided.Attachments: 19:47 [facility] Payment Agreement gjb 04/28 11:46 T-Sheet-- Draft Copy gb Chart Complete MTDD
== END 2016-04-27 22:10 | disposition home or self-care (01) ==
LOC: M ED 17:25
DX: R10.10 Upper abdominal pain, unspecified (principal); R11.10 Vomiting, unspecified
CPT/HCPCS: 36415; 80048; 80076; 81001; 82150; 83690; 84703; 85025; 87086; 96374; 96375; 99284; C9113; J2405

== ENCOUNTER → 2017-03-01 | Outpatient (REF) | payer OTHER | LOC: M LAB REF 20:16 | PROVIDERS: ATTEND Physician Assistant | DX: J02.9 Acute pharyngitis, unspecified (principal) ==

== ENCOUNTER 2017-07-20 16:01 | Emergency (ER) | payer OTHER ==
[2017-07-20] MEDS: METHOCARBAMOL 750 MG TAB PO (16:55)
[2017-07-20] MEDS: KETOROLAC 60 MG/2 ML VIAL (J1885) IM (16:56)
== END 2017-07-20 17:28 | disposition home or self-care (01) ==
LOC: M ED 16:01
DX: Z04.1 Encounter for examination and observation following transport accident (principal); M54.2 Cervicalgia; R51 Headache; K21.9 Gastro-esophageal reflux disease without esophagitis; F33.9 Major depressive disorder, recurrent, unspecified; Z79.3 Long term (current) use of hormonal contraceptives; Z79.899 Other long term (current) drug therapy
CPT/HCPCS: J1885

== ENCOUNTER → 2017-08-01 | Outpatient (REF) | payer OTHER ==
[2017-08-02 11:11] LABS: HEPATITIS B SURFACE ANTIGEN NEGATIVE (NEGATIVE)
[2017-08-02 11:32] LABS: HEPATITIS B CORE ANTIBODY IGM NEGATIVE (NEGATIVE)
[2017-08-02 11:40] LABS: HEPATITIS A ANTIBODY IGM NEGATIVE (NEGATIVE)
== END ==
LOC: M LAB REF 12:07
DX: L81.8 Other specified disorders of pigmentation (principal)

== ENCOUNTER → 2018-05-17 | Outpatient (REF) | payer BC ==
[~2018-05-17] MED LIST: LEXA1TAB2 PO; NAPR-885 PO; ROBA500T PO; birth control PO
[2018-05-17 13:33] LABS: APPEARANCE, URINE CLEAR (CLEAR); BACTERIA, URINE AUTO NEGATIVE (NEGATIVE); BILIRUBIN, URINE AUTO NEGATIVE (NEGATIVE); BLOOD, URINE BLOOD NEGATIVE (NEGATIVE); COLOR, URINE YELLOW (YELLOW); GLUCOSE, URINE (UA) AUTO NEGATIVE (NEGATIVE); KETONE, URINE AUTO NEGATIVE (NEGATIVE); LEUKOCYTE ESTERASE, URINE AUTO NEGATIVE (NEGATIVE); NITRITE, URINE AUTO NEGATIVE (NEGATIVE); PROTEIN, URINE AUTO NEGATIVE (NEGATIVE); RBC, URINE AUTO 1 /HPF (0-3); SPECIFIC GRAVITY URINE AUTO 1.018 (1.002-1.035); SQUAMOUS EPITHELIAL CELL UR AU 1 /HPF (0-6); UROBILINOGEN, URINE AUTO 0.2 mg/dL (0.0-2.0); WBC, URINE AUTO 3 /HPF (0-3)
== END ==
LOC: M LAB REF 12:27
PROVIDERS: ATTEND Nurse Practitioner Women's Health
DX: N39.0 Urinary tract infection, site not specified (principal)

== ENCOUNTER → 2019-01-21 | Outpatient (REF) | payer BC ==
[2019-01-21 18:07] LABS: APPEARANCE, URINE CLEAR (CLEAR); BACTERIA, URINE AUTO NEGATIVE (NEGATIVE); BILIRUBIN, URINE AUTO NEGATIVE (NEGATIVE); BLOOD, URINE BLOOD NEGATIVE (NEGATIVE); COLOR, URINE YELLOW (YELLOW); GLUCOSE, URINE (UA) AUTO NEGATIVE (NEGATIVE); KETONE, URINE AUTO NEGATIVE (NEGATIVE); LEUKOCYTE ESTERASE, URINE AUTO NEGATIVE (NEGATIVE); NITRITE, URINE AUTO NEGATIVE (NEGATIVE); PROTEIN, URINE AUTO NEGATIVE (NEGATIVE); RBC, URINE AUTO 0 /HPF (0-3); SPECIFIC GRAVITY URINE AUTO 1.016 (1.002-1.035); SQUAMOUS EPITHELIAL CELL UR AU 0 /HPF (0-6); UROBILINOGEN, URINE AUTO 0.2 mg/dL (0.0-2.0); WBC, URINE AUTO 0 /HPF (0-3)
== END ==
LOC: M SMT 17:45
PROVIDERS: ATTEND Nurse Practitioner Family
DX: R35.0 Frequency of micturition (principal)

== ENCOUNTER → 2019-02-17 | Outpatient (REF) | payer BC ==
[2019-02-17 20:22] LABS: APPEARANCE, URINE CLEAR (CLEAR); BACTERIA, URINE AUTO 1+ (NEGATIVE); BILIRUBIN, URINE AUTO NEGATIVE (NEGATIVE); BLOOD, URINE BLOOD 2+ (NEGATIVE); COLOR, URINE AMBER (YELLOW); GLUCOSE, URINE (UA) AUTO NEGATIVE (NEGATIVE); KETONE, URINE AUTO NEGATIVE (NEGATIVE); LEUKOCYTE ESTERASE, URINE AUTO 3+ (NEGATIVE); NITRITE, URINE AUTO POSITIVE (NEGATIVE); PROTEIN, URINE AUTO NEGATIVE (NEGATIVE); RBC, URINE AUTO 1 /HPF (0-3); SPECIFIC GRAVITY URINE AUTO 1.003 (1.002-1.035); SQUAMOUS EPITHELIAL CELL UR AU 1 /HPF (0-6); UROBILINOGEN, URINE AUTO 0.2 mg/dL (0.0-2.0); WBC, URINE AUTO 116 /HPF (0-3)
== END ==
LOC: M LAB REF 08:36
PROVIDERS: ATTEND Physician Assistant
DX: N39.0 Urinary tract infection, site not specified (principal)